=== PATIENT | female | born 1980 | race Caucasian/White ===

== ENCOUNTER 2020-12-14 12:50 | Emergency (ER) | payer OTHER ==
[2020-12-14 14:06] LABS: BASOPHIL 0.1 % (0-2); EOSINOPHIL 0.3 % (0-5); HCT 38.8 % (37.0-47.0); HGB 13.2 g/dl (12.5-16.0); LYMPHOCYTE 23.8 % (15-48); MCH 28.9 pg (25.0-31.0); MCV 84.9 fL (78.0-100.0); MONOCYTE 6.7 % (0-12); MPV 10.4 fL (6.0-9.5); NEUTROPHIL 68.8 % (41-80); NRBC 0; PLT 239 K/uL (150-400); RBC 4.57 M/uL (4.20-5.40); RDW 14.2 % (11.5-14.0); WBC 13.5 K/uL (4.0-10.5)
[2020-12-14 14:21] LABS: BUN/CREAT RATIO (CALC) 12.7 RATIO; CREATININE 0.71 mg/dL (0.51-0.95); MAGNESIUM 1.8 mg/dL (1.8-2.4); POTASSIUM 3.8 mmol/L (3.5-5.1)
[2020-12-14] MEDS ORDERED: CARAFATE1 GM PO (19:33)
[2020-12-14] MEDS ORDERED: PROTONIX 40MG T40 MG PO (19:33)
== END 2020-12-14 19:50 | disposition home or self-care (01) ==
LOC: FER 12:50
PROVIDERS: Nurse Practitioner Family
DX: R10.13 Epigastric pain (principal); R00.0 Tachycardia, unspecified; R07.89 Other chest pain; Z87.442 Personal history of urinary calculi
CPT/HCPCS: 36415; 71045; 80048; 83735; 84484; 85025; 85379; 93005; J1885; J7030